=== PATIENT | male | born 1980 | race Caucasian/White ===

== ENCOUNTER 2020-08-22 15:41 | Inpatient (IN) | payer BC, OTHER ==
[2020-08-22] MEDS ORDERED: ACETAMINOPHEN TAB 325 MG TAB PO STA (16:11)
[2020-08-22] MEDS: SODIUM CHLORIDE 0.9% 1,000 ML IV SCH (16:19)
[2020-08-22] MEDS ORDERED: VANCOMYCIN IV PER PHARMACY 1 EACH MISC MISCELLANE PRN (16:40)
[2020-08-22 16:57] LABS: Basophils # (A) 0.1 k/uL (0-0.2); Basophils % (A) 0 %; Eosinophils # (A) 0.2 k/uL (0-0.7); Eosinophils % (A) 1 %; HCT 41.5 % (39.0-53.0); HGB 13.7 gm/dL (13.0-17.5); Lymphocytes # (A) 1.5 k/uL (1.0-4.8); Lymphocytes % (A) 7 %; MCH 28.5 pg (25.0-35.0); MCHC 32.9 g/dL (31.0-37.0); MCV 86.5 fL (80.0-100.0); Mean Platelet Volume 7.6; Monocytes # (A) 0.5 k/uL (0-1.0); Monocytes % (A) 3 %; Neutrophils # (A) 17.8 k/uL (1.3-7.7); Neutrophils % (A) 88 %; Platelet Count 405 k/uL (150-450); RDW 12.6 % (11.5-15.5); WBC 20.3 k/uL (3.8-10.6)
[2020-08-22] MEDS ORDERED: VANCOMYCIN 1,750 MG in SODIUM CHLORIDE 0.9% 500 ML 500 ML IVPB ONE (17:00)
[2020-08-22 17:12] LABS: ALT 15 U/L (4-49); AST 18 U/L (17-59); African American GFR (CKD) >90 (>60 ml/min/1.73 sqM); Albumin 4.2 g/dL (3.5-5.0); Alkaline Phosphatase 84 U/L (38-126); Anion Gap 7 mmol/L; Blood Urea Nitrogen 14 mg/dL (9-20); Calcium 9.5 mg/dL (8.4-10.2); Carbon Dioxide 29 mmol/L (22-30); Chloride 100 mmol/L (98-107); Glucose 119 mg/dL (74-99); Non-African American GFR(CKD) >90 (>60 ml/min/1.73 sqM); Potassium 4.5 mmol/L (3.5-5.1); Sodium 136 mmol/L (137-145); Total Bilirubin 0.6 mg/dL (0.2-1.3); Total Protein 7.4 g/dL (6.3-8.2)
[2020-08-22] MEDS ORDERED: AZITHROMYCIN 500 MG in SODIUM CHLORIDE 0.9% 250 ML IVPB STA (17:13)
[2020-08-22] MEDS ORDERED: NALOXONE 0.4 MG/ML 1 ML VIAL IV PRN (17:13)
--- NOTE | 2020-08-22 17:16 | ED ---
SOB HPI - General Chief Complaint: Shortness of Breath Stated Complaint: poss COVID, lung abscess Time Seen by Provider: 08/22/20 16:05 Source: patient, EMS Mode of arrival: EMS Limitations: no limitations - History of Present Illness Initial Comments: 39-year-old male presenting today for chief complaint of cough headache fever chills for the last 7 days patient states that about a week ago he was around a family member with similar symptoms. Patient states that he has been feeling generally unwell for the past week. He states he woke this morning feeling worse he states he felt like he had a fever as well as left-sided chest pain. He states it was a pressure more sharp and increases with respiration. Denies leg swelling he admits to night sweats. He states he felt like a rib was almost out. Patient denies recent travel trauma surgery recent immobilization or history of cancer. Patient denies hemoptysis. Patient denies syncope. Denies incarceration. Denies diarrhea or abdominal pain. Patient initiated evaluated at [facility] where he was treated with Unasyn and diagnosed with a suspected lung abscess after chest CT. White count was 19.5. Given Unasyn at outside facility. Blood culture taken before abx at outside facility. - Related Data Home Medications Medication Instructions Recorded Confirmed No Known Home Medications 08/22/20 08/22/20 Allergies Allergy/AdvReac Type Severity Reaction Status Date / Time cephalexin [From Keflex] Allergy Unknown Verified 08/22/20 17:27 Childhood Review of Systems ROS Statement: Those systems with pertinent positive or pertinent negative responses have been documented in the HPI. ROS Other: All systems not noted in ROS Statement are negative. Past Medical History Past Medical History: No Reported History History of Any Multi-Drug Resistant Organisms: None Reported Past Surgical History: Hernia Repair, Orthopedic Surgery, Tonsillectomy Past Psychological History: No Psychological Hx Reported Smoking Status: Never smoker Past Alcohol Use History: None Reported Past Drug Use History: None Reported General Exam - General Exam Comments Initial Comments: General: The patient is awake and alert, in no distress Eye: Pupils are equal, round and reactive to light, extra-ocular movements are intact. No nystagmus. There is normal conjunctiva bilaterally. No signs of icterus. Ears, nose, mouth and throat: There are moist mucous membranes and no oral lesions. Neck: The neck is supple, there is no tenderness or JVD. Cardiovascular: There is a regular rate and rhythm. No murmur, rub or gallop is appreciated. Respiratory: Respirations are non-labored, breath sounds are equal. No wheezes, stridor. Rhonchi and rales especially left sided. Gastrointestinal: Soft, non-distended, non-tender abdomen without masses or organomegaly noted. There is no rebound or guarding present. Musculoskeletal: Normal ROM, no tenderness. Strength 5/5. Sensation intact. Pulses equal bilaterally 2+. Neurological: A&O x 3. CN II-XII intact, There are no obvious motor or sensory deficits. Coordination appears grossly intact. Speech is normal. Skin: Skin is warm and dry and no rashes or lesions are noted. No LE edema or calf pain Psychiatric: Cooperative, appropriate mood & affect, normal judgment. Limitations: no limitations Course Vital Signs 08/22/20 08/22/20 15:43 16:46 Temperature 102.1 F H Pulse Rate 87 Respiratory 18 18 Rate Blood Pressure 138/90 O2 Sat by Pulse 94 L Oximetry Medical Decision Making - Medical Decision Making Significant leukocytosis. Patient initiated on vancomycin. Patient case discussed with Dr. Gentile who discussed case with accepting admitting provider. Pt appears in no distress on arrival and was givne tylenol. Re=testing covid as there was noted ground glass appearance near the abscess. - Lab Data Result diagrams: 08/22/20 16:38 08/22/20 16:38 Lab Results 08/22/20 08/22/20 08/22/20 Range/Units 16:38 16:38 16:38 WBC 20.3 H (3.8-10.6) k/uL RBC 4.80 (4.30-5.90) m/uL Hgb 13.7 (13.0-17.5) gm/dL Hct 41.5 (39.0-53.0) % MCV 86.5 (80.0-100.0) fL MCH 28.5 (25.0-35.0) pg MCHC 32.9 (31.0-37.0) g/dL RDW 12.6 (11.5-15.5) % Plt Count 405 (150-450) k/uL MPV 7.6 Neutrophils % 88 % Lymphocytes % 7 % Monocytes % 3 % Eosinophils % 1 % Basophils % 0 % Neutrophils # 17.8 H (1.3-7.7) k/uL Lymphocytes # 1.5 (1.0-4.8) k/uL Monocytes # 0.5 (0-1.0) k/uL Eosinophils # 0.2 (0-0.7) k/uL Basophils # 0.1 (0-0.2) k/uL Sodium 136 L (137-145) mmol/L Potassium 4.5 (3.5-5.1) mmol/L Chloride 100 (98-107) mmol/L Carbon Dioxide 29 (22-30) mmol/L Anion Gap 7 mmol/L BUN 14 (9-20) mg/dL Creatinine 0.92 (0.66-1.25) mg/dL Est GFR (CKD-EPI)AfAm >90 (>60 ml/min/1.73 sqM) Est GFR (CKD-EPI)NonAf >90 (>60 ml/min/1.73 sqM) Glucose 119 H (74-99) mg/dL Plasma Lactic Acid Carlos 1.3 (0.7-2.0) mmol/L Calcium 9.5 (8.4-10.2) mg/dL Total Bilirubin 0.6 (0.2-1.3) mg/dL AST 18 (17-59) U/L ALT 15 (4-49) U/L Alkaline Phosphatase 84 (38-126) U/L Total Protein 7.4 (6.3-8.2) g/dL Albumin 4.2 (3.5-5.0) g/dL Disposition Clinical Impression: Lung abscess, Fever, Cough, Chest discomfort Disposition: ADMITTED IP TO THIS [facility] Condition: Serious Is patient prescribed a controlled substance at d/c from ED?: No Time of Disposition: 17:15 Decision to Admit Reason: Admit from EC Decision Date: 08/22/20 Decision Time: 17:15
[2020-08-22] MEDS ORDERED: guaiFENesin SYRUP 100MG/5ML 200 MG/10 ML CUP PO PRN (21:08)
[2020-08-22] MEDS ORDERED: MENTHOL (NICE) LOZENGE MUCOUS MEM PRN (21:09)
--- NOTE | 2020-08-22 21:30 | P.CNPUL ---
History of Present Illness Consult date: 08/22/20 Reason for consult: pneumonia History of present illness: 39-year-old male patient presented to the emergency department today because of fever and chills of 7 day duration addition to cough and headache. His symptoms of been going on for almost a week and other family members in his household with having similar symptoms. The patient felt feverish and he also complained of some left-sided chest pain. The pain was sharp and was pleuritic in nature. No hemoptysis. He initially presented himself to [facility] he was treated with IV Unasyn he was diagnosed having pneumonia/lung abscess. His white cell count was at 19.5. He was started on IV Unasyn. Blood culture was taken and following that the patient was transferred to us for further evaluation and treatment. In the ED, the patient had temperature of 102.1. No tachycardia. No tachypnea. Pulse ox was 94%. He had a white cell count 20.3. Review of Systems Constitutional: Reports fatigue, Reports fever Eyes: denies as per HPI, denies blurred vision, denies bulging eye, denies decreased vision, denies diplopia, denies discharge, denies dry eye, denies irritation, denies itching, denies pain, denies photophobia, denies loss of peripheral vision, denies loss of vision, denies tunnel vision/blind spots Ears: deny: decreased hearing, ear discharge, earache, tinnitus Ears, nose, mouth and throat: Reports as per HPI Breasts: absent: as per HPI, gynecomastia Cardiovascular: Reports dyspnea on exertion Respiratory: Reports cough, Reports dyspnea, Reports pleurisy Gastrointestinal: Reports as per HPI Genitourinary: Reports as per HPI Musculoskeletal: Reports as per HPI Musculoskeletal: absent: ankle pain, ankle stiffness, ankle swelling Integumentary: Reports as per HPI Neurological: Reports as per HPI Psychiatric: Reports as per HPI Endocrine: Reports as per HPI Allergic/Immunologic: Reports as per HPI Past Medical History Past Medical History: No Reported History History of Any Multi-Drug Resistant Organisms: None Reported Past Surgical History: Hernia Repair, Orthopedic Surgery, Tonsillectomy Past Psychological History: No Psychological Hx Reported Smoking Status: Never smoker Past Alcohol Use History: None Reported Past Drug Use History: None Reported Medications and Allergies Home Medications Medication Instructions Recorded Confirmed Type No Known Home Medications 08/22/20 08/22/20 History Allergies Allergy/AdvReac Type Severity Reaction Status Date / Time cephalexin [From Keflex] Allergy Unknown Verified 08/22/20 17:27 Childhood Physical Exam Vitals: Vital Signs Temp Pulse Resp BP Pulse Ox 08/22/20 18:02 98.9 F 68 16 124/87 97 08/22/20 16:46 18 08/22/20 15:43 102.1 F H 87 18 138/90 94 L Intake and Output 08/22/20 08/22/20 08/22/20 06:59 14:59 22:59 Other: Weight 102.058 kg The patient appeared well nourished and normally developed. Vital signs as documented. Head exam is unremarkable. No scleral icterus or corneal arcus noted. Neck is without jugular venous distension, thyromegaly, or carotid bruits. Carotid upstrokes are brisk bilaterally. Lungs are clear to auscultation and percussion. Cardiac exam reveals the PMI to be normally sized and situated. Rhythm is regular. First and second heart sounds normal. No murmurs, rubs or gallops. Abdominal exam reveals normal bowel sounds, no masses, no organomegaly and no aortic enlargement. Extremities are nonedematous and both femoral and pedal pulses are normal.Examination of the skin revealed no evidence of significant rashes, suspicious appearing nevi or other concerning lesions.Neurologically, the patient is awake and alert and the patient does not have any focal neurological deficit. Cranial nerves are essentially intact. Results - Laboratory Findings CBC and BMP: 08/22/20 16:38 08/22/20 16:38 Abnormal lab findings: Abnormal Labs 08/22/20 08/22/20 16:38 16:38 WBC 20.3 H Neutrophils # 17.8 H Sodium 136 L Glucose 119 H Assessment and Plan Plan: 1 acute left lower lobe cavitating pneumonia, likely bacterial. Consider gram- negative pneumonia. Consider MRSA pneumonia. Unlikely to be a fungal infection. 2 leukocytosis secondary to above 3 Pleuritic left-sided chest wall pain secondary to above Plan Continue Unasyn and vancomycin Obtain sputum culture obtain blood cultures check fungal serology repeat chest x-ray within next 24-48 hours Bronchoscopy may be considered with a bronchial lavage if no improvement. Malignancy is doubtful.
[2020-08-22] MEDS ORDERED: BENZOCAINE/MENTHOL LOZENG 1 EACH LOZENGE MUCOUS MEM PRN (22:04)
[2020-08-22] MEDS: AMPICILLIN-SULBACTAM 3 GM in SODIUM CHLORIDE 0.9% 100 ML IVPB SCH (23:51)
[2020-08-23] MEDS: VANCOMYCIN 1,750 MG in SODIUM CHLORIDE 0.9% 500 ML 500 ML IVPB SCH ×3 (01:17→18:54)
[2020-08-23] MEDS: SODIUM CHLORIDE 0.9% 1,000 ML IV SCH ×3 (04:40→17:43)
[2020-08-23] MEDS: AMPICILLIN-SULBACTAM 3 GM in SODIUM CHLORIDE 0.9% 100 ML IVPB SCH ×3 (08:27→22:29)
[2020-08-23 11:33] LABS: Basophils # (A) 0.1 k/uL (0-0.2); Basophils % (A) 1 %; Eosinophils # (A) 0.2 k/uL (0-0.7); Eosinophils % (A) 2 %; HCT 41.1 % (39.0-53.0); Lymphocytes # (A) 1.5 k/uL (1.0-4.8); Lymphocytes % (A) 10 %; MCHC 31.6 g/dL (31.0-37.0); MCV 88.3 fL (80.0-100.0); Mean Platelet Volume 8.2; Monocytes # (A) 0.5 k/uL (0-1.0); Monocytes % (A) 3 %; Neutrophils # (A) 12.8 k/uL (1.3-7.7); Neutrophils % (A) 84 %; Platelet Count 440 k/uL (150-450); RBC 4.65 m/uL (4.30-5.90); RDW 12.6 % (11.5-15.5); WBC 15.2 k/uL (3.8-10.6)
[2020-08-23 11:37] LABS: ALT 14 U/L (4-49); AST 17 U/L (17-59); African American GFR (CKD) >90 (>60 ml/min/1.73 sqM); Albumin 3.6 g/dL (3.5-5.0); Alkaline Phosphatase 82 U/L (38-126); Anion Gap 8 mmol/L; Blood Urea Nitrogen 12 mg/dL (9-20); Carbon Dioxide 26 mmol/L (22-30); Chloride 103 mmol/L (98-107); Glucose 124 mg/dL (74-99); Non-African American GFR(CKD) >90 (>60 ml/min/1.73 sqM); Potassium 4.4 mmol/L (3.5-5.1); Sodium 137 mmol/L (137-145); Total Bilirubin 0.6 mg/dL (0.2-1.3); Total Protein 6.6 g/dL (6.3-8.2)
--- NOTE | 2020-08-23 12:05 | XR ---
EXAMINATION TYPE: XR chest 2V DATE OF EXAM: 08/23/2020 COMPARISON: 08/22/2020 TECHNIQUE: Frontal view is submitted. HISTORY: Cough FINDINGS: The left lower lobe area of consolidation. Right lung demonstrates no definite consolidation and ther e is no pneumothorax or overt failure. Heart size normal. Retrocardiac nodular density measuring 1 cm on the right. Degenerative change of the spine and underlying COPD suspected. IMPRESSION: 1. Left lower lobe infiltrate correlate for pneumonia small effusion. Recent outside CT scan demonstr ates pulmonary abscess in the region of the infiltrate.
--- NOTE | 2020-08-23 15:01 | P.PN ---
Subjective Progress Note Date: 08/23/20 Principal diagnosis: Cavitary lesion in his lung 39-year-old male patient presented to the emergency department today because of fever and chills of 7 day duration addition to cough and headache. His symptoms of been going on for almost a week and other family members in his household with having similar symptoms. The patient felt feverish and he also complained of some left-sided chest pain. The pain was sharp and was pleuritic in nature. No hemoptysis. He initially presented himself to [facility] he was treated with IV Unasyn he was diagnosed having pneumonia/lung abscess. His white cell count was at 19.5. He was started on IV Unasyn. Blood culture was t aken and following that the patient was transferred to us for further evaluation and treatment. In the ED, the patient had temperature of 102.1. No tachycardia. No tachypnea. Pulse ox was 94%. He had a white cell count 20.3. The patient is seen today 08/23/2020 in follow-up on the selective care unit. He is currently sitting up in bed. Awake and alert in no acute distress. He does have a productive cough. Sputum culture pending. No fever, chills or night sweats. Less left-sided chest discomfort. He continues to maintain good O2 saturations in the 90s on room air. He's afebrile. White count 15.2. Hemoglobin 13.0. Sodium 137. Potassium 4.4. Creatinine 0.68. Mar virus not detected. Continued on Unasyn and vancomycin. 0.9 normal saline at 130 ML's per hour Objective - Vital Signs Vital signs: Vital Signs Temp 98.0 F 08/23/20 08:49 Pulse 72 08/23/20 08:49 Resp 18 08/23/20 08:49 BP 121/81 08/23/20 08:49 Pulse Ox 95 08/23/20 08:49 Intake & Output 08/22/20 08/23/20 08/23/20 18:59 06:59 18:59 Intake Total 240 Balance 240 Weight 102.058 kg 104.2 kg Intake: Oral 240 Other: Voiding Method Toilet # Voids 0 1 - Exam Very pleasant 39-year-old gentleman, on room air, appeared well nourished and normally developed. Vital signs as documented. Head exam is unremarkable. No scleral icterus or corneal arcus noted. Neck is without jugular venous distension, thyromegaly, or carotid bruits. Carotid upstrokes are brisk bilaterally. Lungs scattered rhonchi on the left. Cardiac exam reveals the PMI to be normally sized and situated. Rhythm is regular. First and second heart sounds normal. No murmurs, rubs or gallops. Abdominal exam reveals normal bowel sounds, no masses, no organomegaly and no aortic enlargement. Extremities are nonedematous and both femoral and pedal pulses are normal.Examination of the skin revealed no evidence of significant rashes, suspicious appearing nevi or other concerning lesions.Neurologically, the patient is awake and alert and the patient does not have any focal neurological deficit. Cranial nerves are essentially intact. - Labs CBC & Chem 7: 08/23/20 07:16 08/23/20 07:16 Labs: Abnormal Lab Results - Last 24 Hours (Table) 08/22/20 08/22/20 08/23/20 Range/Units 16:38 16:38 07:16 WBC 20.3 H 15.2 H (3.8-10.6) k/uL Neutrophils # 17.8 H 12.8 H (1.3-7.7) k/uL Sodium 136 L (137-145) mmol/L Glucose 119 H (74-99) mg/dL 08/23/20 Range/Units 07:16 WBC (3.8-10.6) k/uL Neutrophils # (1.3-7.7) k/uL Sodium (137-145) mmol/L Glucose 124 H (74-99) mg/dL Assessment and Plan Assessment: 1 acute left lower lobe cavitating pneumonia, likely bacterial. Consider gram- negative pneumonia. Consider MRSA pneumonia. Unlikely to be a fungal infection. 2 leukocytosis secondary to above 3 Pleuritic left-sided chest wall pain secondary to above Plan The patient was seen and evaluated by Dr. Altamirano Continue with the Unasyn and vancomycin Cultures and serology pending Repeat chest x-ray in a.m. May consider bronchoscopy with BAL if no improvement We will continue to follow I, the cosigning physician, performed a history & physical examination of the patient. Lungs sounds scattered rhonchi in the left Maintaining good O2 saturations in the 90s on room air. I discussed the assessment and plan of care with my nurse practitioner, Florence Cabrera. I attest to the above note as dictated by her.
[2020-08-23] MEDS ORDERED: ACETAMINOPHEN TAB 325 MG TAB PO PRN (15:47)
--- NOTE | 2020-08-23 15:48 | P.HPIM ---
History of Present Illness H&P Date: 08/23/20 Chief Complaint: Shortness of breath and cough Patient was admitted to the hospital yesterday that I was not notified by ER staff. I realized he was admitted to me today. No one notified me of the admission. This is a 39-year-old male with no significant past medical history who presented to an outside emergency room with worsening shortness of breath and cough that started 5 days ago prior to his presentation. Patient said that he was having fevers and left-sided chest pain. Cough is generally nonproductive but occasionally productive of dark sputum. Patient denies any hemoptysis. No recent sick contact. No known history of tuberculosis at moderate risk factors for tuberculosis. Patient told me that he worked as a [employer]. He was evaluated in the ER and was started on IV Unasyn. He is currently admitted to the hospital for further management of his medical problems noted below. Patient reports feeling slightly better today. He does not have any complaints this morning. Review of Systems Review of system: 14 points review of systems were obtained and were negative except to what were mentioned in the HPI. Past Medical History Past Medical History: No Reported History History of Any Multi-Drug Resistant Organisms: None Reported Past Surgical History: Hernia Repair, Orthopedic Surgery, Tonsillectomy Past Anesthesia/Blood Transfusion Reactions: No Reported Reaction Past Psychological History: No Psychological Hx Reported Smoking Status: Never smoker Past Alcohol Use History: None Reported Past Drug Use History: None Reported Medications and Allergies Home Medications Medication Instructions Recorded Confirmed Type No Known Home Medications 08/22/20 08/22/20 History Allergies Allergy/AdvReac Type Severity Reaction Status Date / Time cephalexin [From Keflex] Allergy Unknown Verified 08/22/20 17:27 Childhood Physical Exam Vitals: Vital Signs Temp Pulse Pulse Resp BP BP Pulse Ox 08/23/20 08:49 98.0 F 72 16 121/81 95 08/23/20 04:00 99.0 F 64 17 118/73 97 08/23/20 00:00 98.2 F 72 16 116/72 95 08/22/20 20:17 98.8 F 75 18 122/60 97 08/22/20 20:00 98.3 F 75 16 116/73 95 08/22/20 18:02 98.9 F 68 16 124/87 97 08/22/20 16:46 18 Intake and Output 08/23/20 08/23/20 08/23/20 06:59 14:59 22:59 Intake Total 240 Balance 240 Intake: Oral 240 Other: Voiding Method Toilet # Voids 0 1 Weight 104.2 kg General: The patient is awake and alert, in no distress Eye: there is normal conjunctiva bilaterally. Neck: The neck is supple, there is no JVD. Cardiovascular: Normal S1-S2, no S3-S4, no murmurs. Respiratory: Lungs clear to auscultation bilaterally Gastrointestinal: Abdomen is soft, nontender Musculoskeletal: There is no pedal edema. Neurological:. Speech is normal. Skin: Skin is warm and dry Results CBC & Chem 7: 08/23/20 07:16 08/23/20 07:16 Labs: Abnormal Lab Results - Last 24 Hours (Table) 08/22/20 08/22/20 08/23/20 Range/Units 16:38 16:38 07:16 WBC 20.3 H 15.2 H (3.8-10.6) k/uL Neutrophils # 17.8 H 12.8 H (1.3-7.7) k/uL Sodium 136 L (137-145) mmol/L Glucose 119 H (74-99) mg/dL 08/23/20 Range/Units 07:16 WBC (3.8-10.6) k/uL Neutrophils # (1.3-7.7) k/uL Sodium (137-145) mmol/L Glucose 124 H (74-99) mg/dL Thrombosis Risk Factor Assmnt - Choose All That Apply Any of the Below Risk Factors Present?: No Other Risk Factors: No Thrombosis Risk Factor Assessment Level: Very Low Risk Assessment and Plan Assessment: This is a 39-year-old male who presented to the emergency room with worsening shortness of breath and cough. Patient was evaluated in ER currently admitted to the hospital for further management of his medical problems noted below 1. Left lower lobe cavitating pneumonia, started on broad spectrum antibiotic with IV Unasyn and vancomycin. Pulmonary and ID services consulted, appreciate recommendations. May consider bronchoscopy with BAL. Awaiting sputum culture. Covid19 PCR negative. No suspicion for tuberculosis. 2. Sepsis without septic shock, improved with aggressive IV fluid hydration and antibiotic. Awaiting blood culture.
[2020-08-23] MEDS ORDERED: SODIUM CHLORIDE 0.9% 1,000 ML IV SCH (16:00)
[2020-08-23] MEDS: HEPARIN SODIUM,PORCINE 5,000 UNIT/ML 1 ML VIAL SQ SCH (20:36)
--- NOTE | 2020-08-23 22:37 | P.CONS ---
History of Present Illness - Reason for Consult Consult date: 08/23/20 Pneumonia Requesting physician: Mya Perez - Chief Complaint Shortness of breath and left-sided chest pain x 1 week - History of Present Illness Patient is a 39-year-old male presenting to the ER at [facility] yesterday for evaluation of cough headache and fever that has been going on for about a week before he presented to hospital apparently the patient has been exposed to family member with similar symptoms patient has been complaining of increasing shortness of breath he also have a cough which is moderate intensity and also has been complaining of pain to the left lower chest area more of a sharp in nature and worse with taking a deep breath on coughing patient was evaluated at [facility] with the patient did have a CT of the chest with concern for lung abscess patient received a dose of Unasyn at that facility and the patient was transferred to [facility] for further management on arrival to this facility but did have a fever of 102 F patient did have white count of 20,000 repeat is 15.2 eugene PCR was negative liver enzymes were normal patient did have blood cultures are currently pending he did have a chest x-ray left lower lobe infiltrate correlate for pneumonia and small effusion patient has been treated with vancomycin and Unasyn infectious disease was consulted for further management of antibiotic therapy Review of Systems Positive point has been mentioned in the HPI rest of the systems are negative Past Medical History Past Medical History: No Reported History History of Any Multi-Drug Resistant Organisms: None Reported Past Surgical History: Hernia Repair, Orthopedic Surgery, Tonsillectomy Past Anesthesia/Blood Transfusion Reactions: No Reported Reaction Past Psychological History: No Psychological Hx Reported Smoking Status: Never smoker Past Alcohol Use History: None Reported Past Drug Use History: None Reported Medications and Allergies Home Medications Medication Instructions Recorded Confirmed Type No Known Home Medications 08/22/20 08/22/20 History Allergies Allergy/AdvReac Type Severity Reaction Status Date / Time cephalexin [From Keflex] Allergy Unknown Verified 08/22/20 17:27 Childhood Physical Exam Vitals: Vital Signs Temp Pulse Resp BP Pulse Ox 08/23/20 16:15 98.5 F 82 18 126/78 95 08/23/20 16:00 82 18 08/23/20 12:00 98.9 F 82 16 126/79 95 08/23/20 08:49 98.0 F 72 16 121/81 95 08/23/20 04:00 99.0 F 64 17 118/73 97 08/23/20 00:00 98.2 F 72 16 116/72 95 Intake and Output 08/23/20 08/23/20 08/23/20 06:59 14:59 22:59 Intake Total 240 240 Balance 240 240 Intake: Oral 240 240 Other: Voiding Method Toilet Toilet Toilet # Voids 0 1 1 Weight 104.2 kg GENERAL DESCRIPTION: Middle-aged male lying in bed, no distress. No tachypnea or accessory muscle of respiration use. HEENT: Shows Pallor , no scleral icterus. Oral mucous membrane is dry. No pharyngeal erythema or thrush NECK: Trachea central, no thyromegaly. LUNGS: Unlabored breathing. Decreased breath sound at the base. No wheeze or crackle. HEART: S1, S2, regular rate and rhythm. No loud murmur ABDOMEN: Soft, no tenderness , guarding or rigidity, no organomegaly EXTREMITIES: No edema of feet. SKIN: No rash, no masses palpable. NEUROLOGICAL: The patient is awake, alert, oriented x3, mood and affect normal. Results CBC & Chem 7: 08/23/20 07:16 08/23/20 07:16 Labs: Abnormal Lab Results - Last 24 Hours (Table) 08/23/20 08/23/20 Range/Units 07:16 07:16 WBC 15.2 H (3.8-10.6) k/uL Neutrophils # 12.8 H (1.3-7.7) k/uL Glucose 124 H (74-99) mg/dL Microbiology - Last 24 Hours (Table) 08/22/20 16:38 Blood Culture - Preliminary Blood No Growth after 24 hours 08/23/20 11:15 Sputum Culture - Preliminary Sputum Assessment and Plan Assessment: 1- patient presented to hospital with fever and shortness of breath and left- sided chest pain in this patient who did have evidence of left lower lobe pneumonia with consult for possible cavitating pneumonia versus an abscess more likely Require pathogen most likely aspiration or a gram-negative bacteria 2-cephalexin ALLERGY (1) Pneumonia Current Visit: Yes Status: Acute Code(s): J18.9 - PNEUMONIA, UNSPECIFIED ORGANISM SNOMED Code(s): 642737753 (2) Lung abscess Current Visit: Yes Status: Acute Code(s): J85.2 - ABSCESS OF LUNG WITHOUT PNEUMONIA SNOMED Code(s): 92320355 Plan: 1-Vancomycin pharmacy to dose target trough of 15 while watching kidney function and Vanco trough closely 2-Unasyn 3 g every 6 hours 3-we will wait for his blood and sputum cultures to be finalized to determine his discharge antibiotics he will likely need a PICC line for outpatient IV antibiotics We will follow on clinical condition and cultures to further adjust medication if needed Thank you for this consultation will follow this patient with you Time with Patient: Greater than 30
[2020-08-24] MEDS ORDERED: VANCOMYCIN TROUGH DUE 1 EACH MISC MISCELLANE ONE
[2020-08-24] MEDS: VANCOMYCIN 1,750 MG in SODIUM CHLORIDE 0.9% 500 ML 500 ML IVPB SCH ×3 (00:32→18:10)
[2020-08-24] MEDS: AMPICILLIN-SULBACTAM 3 GM in SODIUM CHLORIDE 0.9% 100 ML IVPB SCH ×3 (09:01→22:44)
[2020-08-24] MEDS: HEPARIN SODIUM,PORCINE 5,000 UNIT/ML 1 ML VIAL SQ SCH ×2 (09:01→19:40)
[2020-08-24 10:15] LABS: Basophils % (A) 1 %; Eosinophils # (A) 0.2 k/uL (0-0.7); Eosinophils % (A) 2 %; HCT 38.5 % (39.0-53.0); HGB 12.7 gm/dL (13.0-17.5); Lymphocytes # (A) 1.6 k/uL (1.0-4.8); Lymphocytes % (A) 18 %; Mean Platelet Volume 7.2; Monocytes # (A) 0.4 k/uL (0-1.0); Monocytes % (A) 4 %; Neutrophils # (A) 6.8 k/uL (1.3-7.7); Neutrophils % (A) 74 %; Platelet Count 384 k/uL (150-450); RBC 4.37 m/uL (4.30-5.90); RDW 12.4 % (11.5-15.5); WBC 9.2 k/uL (3.8-10.6)
[2020-08-24 10:41] LABS: African American GFR (CKD) >90 (>60 ml/min/1.73 sqM); Anion Gap 6 mmol/L; Blood Urea Nitrogen 10 mg/dL (9-20); Calcium 9.2 mg/dL (8.4-10.2); Carbon Dioxide 28 mmol/L (22-30); Chloride 105 mmol/L (98-107); Glucose 96 mg/dL (74-99); Non-African American GFR(CKD) >90 (>60 ml/min/1.73 sqM); Potassium 4.5 mmol/L (3.5-5.1); Sodium 139 mmol/L (137-145)
[2020-08-24 14:55] LABS: C-ANCA <1:20 Titer (<1:20)
--- NOTE | 2020-08-24 16:40 | P.PN ---
Subjective Progress Note Date: 08/24/20 Patient is doing fairly well today. He denies any shortness of breath or cough. Objective - Vital Signs Vital signs: Vital Signs Temp 99.6 F 08/24/20 12:00 Pulse 85 08/24/20 12:00 Resp 18 08/24/20 04:00 BP 120/79 08/24/20 12:00 Pulse Ox 96 08/24/20 12:00 Intake & Output 08/23/20 08/24/20 08/24/20 18:59 06:59 18:59 Intake Total 480 1440 476 Balance 480 1440 476 Weight 103.8 kg Intake: Intake, IV Titration 1200 Amount Ampicillin-Sulbactam 3 gm 100 In Sodium Chloride 0.9% 100 ml @ 200 mls/hr IVPB Q8HR [facility] Rx#:[id number] Sodium Chloride 0.9% 1, 600 000 ml @ 50 mls/hr IV . Q20H [facility] Rx#:[id number] Vancomycin 1,750 mg In 500 Sodium Chloride 0.9% 500 ml 500 ml @ 167 mls/hr IVPB Q8H [facility] Rx#: [id number] Oral 480 240 476 Other: Voiding Method Toilet Toilet # Voids 1 4 1 - Exam General: The patient is awake and alert, in no distress Eye: there is normal conjunctiva bilaterally. Neck: The neck is supple, there is no JVD. Cardiovascular: Normal S1-S2, no S3-S4, no murmurs. Respiratory: Lungs clear to auscultation bilaterally Gastrointestinal: Abdomen is soft, nontender Musculoskeletal: There is no pedal edema. Neurological:. Speech is normal. Skin: Skin is warm and dry - Labs CBC & Chem 7: 08/24/20 09:07 08/24/20 09:07 Labs: Abnormal Lab Results - Last 24 Hours (Table) 08/24/20 Range/Units 09:07 Hgb 12.7 L (13.0-17.5) gm/dL Hct 38.5 L (39.0-53.0) % Microbiology - Last 24 Hours (Table) 08/23/20 11:15 Gram Stain - Preliminary Sputum Sputum Culture - Preliminary 08/22/20 16:38 Blood Culture - Preliminary Blood No Growth after 24 hours Assessment and Plan Assessment: This is a 39-year-old male who presented to the emergency room with worsening shortness of breath and cough. Patient was evaluated in ER currently admitted to the hospital for further management of his medical problems noted below 1. Left lower lobe cavitating pneumonia with questionable abscess formation, started on broad spectrum antibiotic with IV Unasyn and vancomycin. Pulmonary and ID services consulted, appreciate recommendations. May consider bronchoscopy with BAL. Awaiting sputum culture. Most likely will require a PIC C line and IV antibiotic at home per Infectious disease. Covid19 PCR negative. No suspicion for tuberculosis. 2. Sepsis without septic shock, improved with aggressive IV fluid hydration and antibiotic. Blood culture negative to date 3. DVT prophylaxis with subcu heparin Awaiting sputum cultures to finalize for further guidance of discharge antibiotic
--- NOTE | 2020-08-24 17:27 | P.PN ---
Subjective Progress Note Date: 08/24/20 Principal diagnosis: Cavitary lesion in the lung 39-year-old male patient presented to the emergency department today because of fever and chills of 7 day duration addition to cough and headache. His symptoms of been going on for almost a week and other family members in his household with having similar symptoms. The patient felt feverish and he also complained of some left-sided chest pain. The pain was sharp and was pleuritic in nature. No hemoptysis. He initially presented himself to [facility] he was treated with IV Unasyn he was diagnosed having pneumonia/lung abscess. His white cell count was at 19.5. He was started on IV Unasyn. Blood culture was taken and following that the patient was transferred to us for further evaluation and treatment. In the ED, the patient had temperature of 102.1. No tachycardia. No tachypnea. Pulse ox was 94%. He had a white cell count 20.3. The patient is seen today 08/23/2020 in follow-up on the selective care unit. He is currently sitting up in bed. Awake and alert in no acute distress. He does have a productive cough. Sputum culture pending. No fever, chills or night sweats. Less left-sided chest discomfort. He continues to maintain good O2 saturations in the 90s on room air. He's afebrile. White count 15.2. Hemoglobin 13.0. Sodium 137. Potassium 4.4. Creatinine 0.68. Mar virus not detected. Continued on Unasyn and vancomycin. 0.9 normal saline at 130 ML's per hour On 08/24/2020 patient seen in follow-up on elective care unit, and he is feeling better, is on room air, pulse ox 96%, he's been having some low-grade fevers, with a T-max 99.6F, lung sounds are diminished at the bases, no rhonchi or wheezing, and ice any chest discomfort, at times he is able to clear some weir colored phlegm. Blood and sputum cultures have shown no growth thus far, final cultures are pending, a current antibiotic coverage includes Unasyn and vancomycin. Labs have been reviewed, showing limits cell count significant improved since admission, and down to 9.2, hemoglobin is 12.7, the rest of the CBC was unremarkable, renal profile and electrolytes were unremarkable. Chest pain or hemoptysis, is at p-ANCA and c-ANCA came back negative, COVID 19 PCR was negative Objective - Vital Signs Vital signs: Vital Signs Temp 99.6 F 08/24/20 12:00 Pulse 85 08/24/20 12:00 Resp 18 08/24/20 04:00 BP 120/79 08/24/20 12:00 Pulse Ox 96 08/24/20 12:00 Intake & Output 08/23/20 08/24/20 08/24/20 18:59 06:59 18:59 Intake Total 480 1440 476 Balance 480 1440 476 Weight 103.8 kg Intake: Intake, IV Titration 1200 Amount Ampicillin-Sulbactam 3 gm 100 In Sodium Chloride 0.9% 100 ml @ 200 mls/hr IVPB Q8HR [facility] Rx#:[id number] Sodium Chloride 0.9% 1, 600 000 ml @ 50 mls/hr IV . Q20H [facility] Rx#:[id number] Vancomycin 1,750 mg In 500 Sodium Chloride 0.9% 500 ml 500 ml @ 167 mls/hr IVPB Q8H [facility] Rx#: [id number] Oral 480 240 476 Other: Voiding Method Toilet Toilet # Voids 1 4 1 - Exam GENERAL EXAM: Alert, very pleasant, comfortable in no apparent distress. HEAD: Normocephalic/atraumatic. EYES: Normal reaction of pupils, equal size. Conjunctiva pink, sclera white. NOSE: Clear with pink turbinates. THROAT: No erythema or exudates. NECK: No masses, no JVD, no thyroid enlargement, no adenopathy. CHEST: No chest wall deformity. Symmetrical expansion. LUNGS: Equal air entry with no crackles, wheeze, rhonchi or dullness. CVS: Regular rate and rhythm, normal S1 and S2, no gallops, no murmurs, no rubs ABDOMEN: Soft, nontender. No hepatosplenomegaly, normal bowel sounds, no guarding or rigidity. EXTREMITIES: No clubbing, no edema, no cyanosis, 2+ pulses and upper and lower extremities. MUSCULOSKELETAL: Muscle strength and tone normal. SPINE: No scoliosis or deformity SKIN: No rashes CENTRAL NERVOUS SYSTEM: Alert and oriented -3. No focal deficits, tone is normal in all 4 extremities. PSYCHIATRIC: Alert and oriented -3. Appropriate affect. Intact judgment and insight. - Labs CBC & Chem 7: 08/24/20 09:07 08/24/20 09:07 Labs: Abnormal Lab Results - Last 24 Hours (Table) 08/24/20 Range/Units 09:07 Hgb 12.7 L (13.0-17.5) gm/dL Hct 38.5 L (39.0-53.0) % Microbiology - Last 24 Hours (Table) 08/23/20 11:15 Gram Stain - Preliminary Sputum Sputum Culture - Preliminary 08/22/20 16:38 Blood Culture - Preliminary Blood No Growth after 24 hours Assessment and Plan Plan: Assessment: #1. Acute left lower lung cavitating pneumonia, most likely bacterial, consider gram-negative pneumonia, and consider MRSA pneumonia. Unlikely fungal infection, sputum and blood cultures have shown no growth thus far, final cultures are pending the patient is covered with a combination of Unasyn and vancomycin. COVID 19 PCR was negative #2. Leukocytosis related to the above, improving #3. Pleuritic left-sided chest pain related to bacterial pneumonia involving the left lung, improved Plan We'll continue with the same antibiotics, awaiting final results of the blood and sputum cultures, clinically patient is improving, no worsening dyspnea, stable oxygenation, white blood count is improving, we'll obtain follow-up chest x-ray in the morning. Ruled out for COVID 19, connective tissue workup including p-ANCA and c-Anca and creatinine were negative I performed a history & physical examination of the patient and discussed their management with my nurse practitioner, Rita Hein. I reviewed the nurse practitioner's note and agree with the documented findings and plan of care. Lung sounds are positive for . The findings and the impression was discussed with the patient. I attest to the documentation by the nurse practitioner. Time with Patient: Less than 30
--- NOTE | 2020-08-24 23:59 | PN ---
PROGRESS NOTE DATE OF SERVICE: 08/24/2020 REASON FOR FOLLOWUP: Pneumonia and possible lung abscess. INTERVAL HISTORY: The patient is currently afebrile. The patient's left-sided chest pain has decreased in intensity. Cough has decreased in intensity. No nausea, no vomiting. No abdominal pain, no diarrhea. PHYSICAL EXAMINATION: Blood pressure 121/79 with a pulse of 76, temperature 98.8. He is 96% on room air. General description is a middle-aged male lying in bed in no distress. RESPIRATORY SYSTEM: Unlabored breathing, decreased breath sounds in the bases. No wheeze. HEART: S1, S2. Regular rate and rhythm. ABDOMEN: Soft. No tenderness. LABS: Hemoglobin is 12.7, white count 9.2, BUN of 10, creatinine 0.80. Sputum pending. Blood culture so far negative. DIAGNOSTIC IMPRESSION AND PLAN: Patient with left-sided pneumonia and a concern for lung abscess in this patient clinically responding. His white count has normalized. Patient is covered with Unasyn and vancomycin to continue. Will await for the culture to finalize and continue supportive care. MMODL / IJN: [id number] /
[2020-08-25] MEDS: VANCOMYCIN 1,750 MG in SODIUM CHLORIDE 0.9% 500 ML 500 ML IVPB SCH ×2 (00:36→09:14)
[2020-08-25] MEDS: AMPICILLIN-SULBACTAM 3 GM in SODIUM CHLORIDE 0.9% 100 ML IVPB SCH (09:14)
[2020-08-25] MEDS: HEPARIN SODIUM,PORCINE 5,000 UNIT/ML 1 ML VIAL SQ SCH ×3 (09:15→22:36)
--- NOTE | 2020-08-25 10:13 | XR ---
EXAMINATION TYPE: XR chest 1V portable DATE OF EXAM: 08/25/2020 CLINICAL HISTORY: Left lower lobe pneumonia. TECHNIQUE: Portable frontal view of the chest. COMPARISON: 08/23/2020 chest radiograph FINDINGS: The cardiomediastinal silhouette is within normal limits for size. Left lower lobe focal a irspace opacity redemonstrated. There is haziness of the left costophrenic angle likely small left pl eural effusion. No pneumothorax seen. IMPRESSION: Redemonstrated left basilar focal airspace opacity and likely small left pleural effusio n.
[2020-08-25 10:52] LABS: Basophils # (A) 0.1 k/uL (0-0.2); Basophils % (A) 1 %; Eosinophils # (A) 0.3 k/uL (0-0.7); Eosinophils % (A) 3 %; HCT 40.2 % (39.0-53.0); HGB 12.9 gm/dL (13.0-17.5); Lymphocytes # (A) 2.1 k/uL (1.0-4.8); Lymphocytes % (A) 21 %; MCH 28.1 pg (25.0-35.0); MCV 87.6 fL (80.0-100.0); Monocytes # (A) 0.3 k/uL (0-1.0); Monocytes % (A) 3 %; Neutrophils # (A) 7.2 k/uL (1.3-7.7); Neutrophils % (A) 72 %; Platelet Count 458 k/uL (150-450); RBC 4.59 m/uL (4.30-5.90); RDW 12.7 % (11.5-15.5)
[2020-08-25 11:04] LABS: African American GFR (CKD) >90 (>60 ml/min/1.73 sqM); Anion Gap 8 mmol/L; Blood Urea Nitrogen 12 mg/dL (9-20); Calcium 9.3 mg/dL (8.4-10.2); Carbon Dioxide 28 mmol/L (22-30); Chloride 103 mmol/L (98-107); Glucose 108 mg/dL (74-99); Non-African American GFR(CKD) >90 (>60 ml/min/1.73 sqM); Potassium 4.5 mmol/L (3.5-5.1); Sodium 139 mmol/L (137-145)
--- NOTE | 2020-08-25 14:12 | PN ---
PROGRESS NOTE DATE OF SERVICE: 08/25/2020 REASON FOR FOLLOWUP: Left lung pneumonia and questionable lung abscess. INTERVAL HISTORY: The patient is currently afebrile. The patient's last night chest pain has decreased in intensity. He has been able to take a deep breath, cough with decreased intensity. No nausea, no vomiting, no abdominal pain, no diarrhea. PHYSICAL EXAMINATION: Blood pressure 116/72 with a pulse of 98.4, temperature is 98.5. General description is a middle-aged male up in the bed, in no distress. RESPIRATORY SYSTEM: Unlabored breathing, decreased breath sounds at the base, no wheeze. HEART: S1, S2. Regular rate and rhythm. ABDOMEN: Soft. No tenderness. LABS: Hemoglobin is 12, white count is 10, is 40.. DIAGNOSTIC IMPRESSION/PLAN: Patient with left lower lobe pneumonia, concern for possible abscess. Overall improvement on vancomycin and cefepime. Patient has been negative pathogen. Antibiotic will be switched over to Rocephin 2 g daily and close outpatient followup. Questions and concerns were answered. MMODL / IJN: [id number] /
[2020-08-25] MEDS ORDERED: LIDOCAINE 1% INJ 10MG/ML (20 ML MDV) SQ ONE (14:51)
--- NOTE | 2020-08-25 15:38 | IR ---
EXAMINATION TYPE: IR cvc insert >=5 years DATE OF EXAM: 08/25/2020 COMPARISON: Chest radiograph 08/25/2020 CLINICAL HISTORY: Infection, need for long-term IV antibiotics CONNIE SCRATCHER: Dr. Jazmin Leyva PROCEDURE: The procedure was discussed with the patient. The risks, complications, benefits, and alternatives we re discussed and any questions were answered. Informed consent was obtained. The patient was placed supine. Maximal barrier technique utilized. After informed consent, the skin o verlying the left brachial vein was localized with ultrasound and noted to be compressible and patent . An ultrasound image was obtained and submitted on the patient's chart. Sterile technique utilized with the ultrasound machine. The skin overlying was prepped and draped and Lidocaine used for local a nesthesia. Access was gained to the vein under ultrasound guidance with a 21 gauge needle and a 0.018 inch wire was advanced. A skin angela was made with a scalpel. Access site was dilated with Peel-Away sheath. 4 FR single lumen catheter tailored to the appropriate length of 47 cm and advanced such that the distal tip is at the cavoatrial junction. Spot image was obtained verifying PICC placement. Cath eter was fixed to the skin and a sterile dressing was placed following hemostasis. Catheter was aspir ated and flushed with saline. Patient was discharged from the radiology department in stable conditio n without immediate complication. Fluoro time: 0.2 minutes Fluoroscopic images obtained: 7 IMPRESSION: Status post ultrasound-guided and fluoroscopic-guided PICC placement, ready for use.
[2020-08-25] MEDS ORDERED: ERTAPENEM 1 GM in SODIUM CHLORIDE 0.9% 50 ML IVPB SCH (15:45)
--- NOTE | 2020-08-25 16:11 | P.PN ---
Subjective Progress Note Date: 08/25/20 The patient is a 39-year-old male with no significant past medical history was admitted on 08/23) we were not notified). Seen by our service on 08/24. The patient initially presented for his cough diagnosed with pneumonia and started on IV Unasyn by ER physician. The patient has medication adjusted and vancomycin was added to his regimen per ID. He was seen by me this morning and feels less painful and short of breath. Objective - Vital Signs Vital signs: Vital Signs Temp 98.4 F 08/25/20 08:00 Pulse 75 08/25/20 12:00 Resp 16 08/25/20 04:00 BP 116/73 08/25/20 12:00 Pulse Ox 96 08/25/20 12:00 Intake & Output 08/24/20 08/25/20 08/25/20 18:59 06:59 18:59 Intake Total 920 1230 458 Output Total 300 Balance 920 1230 158 Weight 97.7 kg Intake: Intake, IV Titration 750 Amount Ampicillin-Sulbactam 3 gm 100 In Sodium Chloride 0.9% 100 ml @ 200 mls/hr IVPB Q8HR [facility] Rx#:[id number] Sodium Chloride 0.9% 1, 150 000 ml @ 50 mls/hr IV . Q20H [facility] Rx#:[id number] Vancomycin 1,750 mg In 500 Sodium Chloride 0.9% 500 ml 500 ml @ 167 mls/hr IVPB Q8H [facility] Rx#: [id number] Oral 920 480 458 Output: Urine 300 Other: Voiding Method Toilet # Voids 1 1 - Constitutional General appearance: Present: no acute distress - Respiratory Respiratory: bilateral: diminished - Cardiovascular Rhythm: regular - Gastrointestinal General gastrointestinal: Present: normal bowel sounds - Psychiatric Psychiatric: Present: appropriate affect - Labs CBC & Chem 7: 08/25/20 10:21 08/25/20 10:21 Labs: Abnormal Lab Results - Last 24 Hours (Table) 08/25/20 08/25/20 Range/Units 10:21 10:21 Hgb 12.9 L (13.0-17.5) gm/dL Plt Count 458 H (150-450) k/uL Glucose 108 H (74-99) mg/dL C-Reactive Protein 40.0 H (<10.0) mg/L Microbiology - Last 24 Hours (Table) 08/23/20 11:15 Gram Stain - Final Sputum Sputum Culture - Final 08/22/20 16:38 Blood Culture - Preliminary Blood No Growth after 48 hours Assessment and Plan (1) Lung abscess Narrative/Plan: The patient is improving with therapy appreciate Pulmonary's input cultures negative to date and abx changes from Unasyn and Vancomycin to Rocephin 2 g IV daily Current Visit: Yes Status: Acute Code(s): J85.2 - ABSCESS OF LUNG WITHOUT PNEUMONIA SNOMED Code(s): 30472173 (2) Chest discomfort Narrative/Plan: improving with therapy Current Visit: Yes Status: Acute Code(s): R07.89 - OTHER CHEST PAIN SNOMED Code(s): 688780351 (3) Pneumonia Narrative/Plan: now being treated for CAP will need close outpatient follow up Current Visit: Yes Status: Acute Code(s): J18.9 - PNEUMONIA, UNSPECIFIED ORGANISM SNOMED Code(s): 797744781
--- NOTE | 2020-08-25 18:47 | P.PN ---
Subjective Progress Note Date: 08/25/20 Principal diagnosis: Acute left lower lobe cavitating pneumonia Cavitary lesion in the lung 39-year-old male patient presented to the emergency department today because of fever and chills of 7 day duration addition to cough and headache. His symptoms of been going on for almost a week and other family members in his household with having similar symptoms. The patient felt feverish and he also complained of some left-sided chest pain. The pain was sharp and was pleuritic in nature. No hemoptysis. He initially presented himself to [facility], [place] he was treated with IV Unasyn he was diagnosed having pneumonia/lung abscess. His white cell count was at 19.5. He was started on IV Unasyn. Blood culture was taken and following that the patient was transferred to us for further evaluation and treatment. In the ED, the patient had temperature of 102.1. No tachycardia. No tachypnea. Pulse ox was 94%. He had a white cell count 20.3. The patient is seen today 08/23/2020 in follow-up on the selective care unit. He is currently sitting up in bed. Awake and alert in no acute distress. He does have a productive cough. Sputum culture pending. No fever, chills or night sweats. Less left-sided chest discomfort. He continues to maintain good O2 saturations in the 90s on room air. He's afebrile. White count 15.2. Hemoglobin 13.0. Sodium 137. Potassium 4.4. Creatinine 0.68. Mar virus not detected. Continued on Unasyn and vancomycin. 0.9 normal saline at 130 ML's per hour On 08/24/2020 patient seen in follow-up on elective care unit, and he is feeling better, is on room air, pulse ox 96%, he's been having some low-grade fevers, with a T-max 99.6F, lung sounds are diminished at the bases, no rhonchi or wheezing, and ice any chest discomfort, at times he is able to clear some weir colored phlegm. Blood and sputum cultures have shown no growth thus far, final cultures are pending, a current antibiotic coverage includes Unasyn and van comycin. Labs have been reviewed, showing limits cell count significant improved since admission, and down to 9.2, hemoglobin is 12.7, the rest of the CBC was unremarkable, renal profile and electrolytes were unremarkable. Chest pain or hemoptysis, is at p-ANCA and c-ANCA came back negative, COVID 19 PCR was negative Patient was reevaluated today on 08/21/20, patient is sitting in bed, he is p resently on room air, denies any shortness of breath, denies any cough, no wheezing, sputum cultures and blood cultures remain nondiagnostic. Follow-up chest x-ray showed left basilar focal airspace opacity and possibly a small tiny left pleural effusion. Clinically however the patient is doing great. And relatively asymptomatic. His antibiotics were changed by infectious disease to ertapenem, again patient has no active pulmonary symptoms whatsoever. And I honestly believe that the patient is doing great, could be considered for oral antibiotics and possibly follow-up on outpatient basis. Consider repeating the CT of the chest in 2-3 weeks Objective - Vital Signs Vital signs: Vital Signs Temp 98.4 F 08/25/20 08:00 Pulse 75 08/25/20 12:00 Resp 16 08/25/20 04:00 BP 116/73 08/25/20 12:00 Pulse Ox 96 08/25/20 12:00 Intake & Output 08/24/20 08/25/20 08/25/20 18:59 06:59 18:59 Intake Total 920 1230 698 Output Total 300 Balance 920 1230 398 Weight 97.7 kg Intake: Intake, IV Titration 750 Amount Ampicillin-Sulbactam 3 gm 100 In Sodium Chloride 0.9% 100 ml @ 200 mls/hr IVPB Q8HR [facility] Rx#:[id number] Sodium Chloride 0.9% 1, 150 000 ml @ 50 mls/hr IV . Q20H [facility] Rx#:[id number] Vancomycin 1,750 mg In 500 Sodium Chloride 0.9% 500 ml 500 ml @ 167 mls/hr IVPB Q8H [facility] Rx#: [id number] Oral 920 480 698 Output: Urine 300 Other: Voiding Method Toilet # Voids 1 1 - Exam GENERAL EXAM: Alert, very pleasant, comfortable in no apparent distress. On room air. HEAD: Normocephalic/atraumatic. EYES: Normal reaction of pupils, equal size. Conjunctiva pink, sclera white. NOSE: Clear with pink turbinates. THROAT: No erythema or exudates. NECK: No masses, no JVD, no thyroid enlargement, no adenopathy. CHEST: No chest wall deformity. Symmetrical expansion. LUNGS: Equal air entry with no crackles, wheeze, rhonchi or dullness. CVS: Regular rate and rhythm, normal S1 and S2, no gallops, no murmurs, no rubs ABDOMEN: Soft, nontender. No hepatosplenomegaly, normal bowel sounds, no guarding or rigidity. EXTREMITIES: No clubbing, no edema, no cyanosis, 2+ pulses and upper and lower extremities. MUSCULOSKELETAL: Muscle strength and tone normal. SPINE: No scoliosis or deformity SKIN: No rashes CENTRAL NERVOUS SYSTEM: Alert and oriented -3. No focal deficits, tone is normal in all 4 extremities. PSYCHIATRIC: Alert and oriented -3. Appropriate affect. Intact judgment and insight. - Labs CBC & Chem 7: 08/25/20 10:21 08/25/20 10:21 Labs: Abnormal Lab Results - Last 24 Hours (Table) 08/25/20 08/25/20 Range/Units 10:21 10:21 Hgb 12.9 L (13.0-17.5) gm/dL Plt Count 458 H (150-450) k/uL Glucose 108 H (74-99) mg/dL C-Reactive Protein 40.0 H (<10.0) mg/L Microbiology - Last 24 Hours (Table) 08/23/20 11:15 Gram Stain - Final Sputum Sputum Culture - Final 08/22/20 16:38 Blood Culture - Preliminary Blood No Growth after 48 hours Assessment and Plan Plan: Impression: Acute left lower lobe pneumonia, possibly cavitating, however clinically the patient is not behaving as such. Left-sided pleuritic chest pain secondary to pneumonia and pleurisy. With tiny small left pleural effusion. Recommendation: Continue antibiotics as per infectious disease on the case. Clinically the patient is doing great, Could be seriously considered for discharge home on oral antibiotics and follow- up closely on outpatient basis. We'll continue to follow. Time with Patient: Less than 30
[2020-08-26] MEDS ORDERED: VANCOMYCIN TROUGH DUE 1 EACH MISC MISCELLANE ONE (08:00)
[2020-08-26 09:00] LABS: Basophils # (A) 0.1 k/uL (0-0.2); Basophils % (A) 1 %; Eosinophils # (A) 0.2 k/uL (0-0.7); Eosinophils % (A) 3 %; HCT 41.4 % (39.0-53.0); HGB 13.2 gm/dL (13.0-17.5); Lymphocytes # (A) 1.7 k/uL (1.0-4.8); Lymphocytes % (A) 19 %; MCH 27.8 pg (25.0-35.0); MCHC 31.8 g/dL (31.0-37.0); MCV 87.3 fL (80.0-100.0); Mean Platelet Volume 6.9; Monocytes # (A) 0.2 k/uL (0-1.0); Monocytes % (A) 2 %; Neutrophils # (A) 6.6 k/uL (1.3-7.7); Neutrophils % (A) 75 %; Platelet Count 435 k/uL (150-450); RBC 4.74 m/uL (4.30-5.90); RDW 12.6 % (11.5-15.5); WBC 8.8 k/uL (3.8-10.6)
[2020-08-26 09:26] LABS: African American GFR (CKD) >90 (>60 ml/min/1.73 sqM); Anion Gap 8 mmol/L; Blood Urea Nitrogen 15 mg/dL (9-20); Calcium 9.5 mg/dL (8.4-10.2); Carbon Dioxide 29 mmol/L (22-30); Chloride 102 mmol/L (98-107); Glucose 137 mg/dL (74-99); Non-African American GFR(CKD) >90 (>60 ml/min/1.73 sqM); Potassium 4.5 mmol/L (3.5-5.1); Sodium 139 mmol/L (137-145)
[2020-08-26] MEDS: HEPARIN SODIUM,PORCINE 5,000 UNIT/ML 1 ML VIAL SQ SCH (09:30)
--- NOTE | 2020-08-26 11:28 | P.DS ---
Providers Date of admission: 08/22/20 17:13 Expected date of discharge: 08/26/20 Attending physician: Mya Perez Consults: 08/22/20 17:14 Consult Physician Routine Consulting Provider: Jose Heart Consult Reason/Comments: lung abscess Do you want consulting provider notified?: Yes 08/22/20 17:30 Consult Physician Routine Consulting Provider: Aubree Altamirano Consult Reason/Comments: Lung abscess Do you want consulting provider notified?: Yes Primary care physician: [facility] [place] Course: Discharge Diagnosis: Acute left lower lobe cavitating pneumonia, likely bacterial, probable gram- negative with sepsis, present on admission Pleuritic chest pain secondary to above Hospital Course: Patient is a 39-year-old male with no past medical history who presented to the emergency department due to fever and chills of 7 day duration associated with cough and headache. Initially he presented in [facility] and was treated with IV Unasyn and diagnosed with pneumonia and lung abscess. He was subsequently transferred to [place] for further evaluation. On arrival to the ER he was found have sepsis as well as pneumonia. Pulmonary was consulted and recommended continuing Unasyn and vancomycin. He seen and evaluated by infectious disease who agreed with continuing vancomycin and Unasyn as well as waiting for blood and sputum cultures to be finalized. Covid 19 PCR, p-ANCA, c- ANCA BACK negative. He had a PICC line placed in his left upper extremity on 08/25. Infectious disease recommended a two-week course of Invanz. He was doing well and maintaining sats greater than 94 on room air. He was determined stable for discharge home. He did have one episode of loose stool during his hospital stay and we'll subsequently take a probiotic along with his Invanz. He was given instructions to check for any white plaquing on his tongue and call Dr. Heart if thrush is noted, He was told to monitor PICC line for changes in placement, and to call Dr. vOiedo if diarrhea worsens. Patient seen and examined at bedside. Doing well, no shortness of breath, no chest pain, cough is lessening. No nausea, vomiting, or diarrhea. Vital signs reviewed and stable. General: non toxic, no distress, appears at stated age Derm: warm, dry Head: atraumatic, normocephalic, symmetric Eyes: EOMI, no lid lag, anicteric sclera Mouth: no lip lesion, mucus membranes moist Cardiovascular: S1S2 reg, no murmur, positive posterior tibial pulse bilateral, Lungs: CTA bilateral, no rhonchi, no rales , no accessory muscle use Abdominal: soft, nontender to palpation, no guarding, no appreciable organomegaly Ext: no gross muscle atrophy, no edema, no contractures Neuro: CN II-XI grossly intact, no focal neuro deficits Psych: Alert, oriented, appropriate affect A total of 35 minutes of time were spent preparing this complex discharge summary . Patient Condition at Discharge: Stable Plan - Discharge Summary Discharge Rx Participant: No New Discharge Prescriptions: New Ertapenem [INVanz] 1 gm IVPB Q24H #14 bag Discharge Medication List Ertapenem [INVanz] 1 gm IVPB Q24H #14 bag 08/26/20 [Rx] Follow up Appointment(s)/Referral(s): [facility], [NON-STAFF] - [facility],Infusion [NON-STAFF] - Sarah Oviedo DO [Primary Care Provider] - 1-2 days Discharge Disposition: HOME SELF-CARE
[2020-08-26] MEDS ORDERED: ERTAPENEM 1 GM in SODIUM CHLORIDE 0.9% 50 ML IVPB SCH (14:00)
[2020-08-26 15:15] VITALS: BP 139/89; PULSE 80; RESP 18; TEMP 98
--- NOTE | 2020-08-26 15:19 | P.PN ---
Subjective Progress Note Date: 08/26/20 Principal diagnosis: Cavitary lesion in the lung 39-year-old male patient presented to the emergency department today because of fever and chills of 7 day duration addition to cough and headache. His symptoms of been going on for almost a week and other family members in his household with having similar symptoms. The patient felt feverish and he also complained of some left-sided chest pain. The pain was sharp and was pleuritic in nature. No hemoptysis. He initially presented himself to [facility] he was treated with IV Unasyn he was diagnosed having pneumonia/lung abscess. His white cell count was at 19.5. He was started on IV Unasyn. Blood culture was taken and following that the patient was transferred to us for further evaluation and treatment. In the ED, the patient had temperature of 102.1. No tachycardia. No tachypnea. Pulse ox was 94%. He had a white cell count 20.3. The patient is seen today 08/23/2020 in follow-up on the selective care unit. He is currently sitting up in bed. Awake and alert in no acute distress. He does have a productive cough. Sputum culture pending. No fever, chills or night sweats. Less left-sided chest discomfort. He continues to maintain good O2 saturations in the 90s on room air. He's afebrile. White count 15.2. Hemoglobin 13.0. Sodium 137. Potassium 4.4. Creatinine 0.68. Mar virus not detected. Continued on Unasyn and vancomycin. 0.9 normal saline at 130 ML's per hour On 08/24/2020 patient seen in follow-up on elective care unit, and he is feeling better, is on room air, pulse ox 96%, he's been having some low-grade fevers, with a T-max 99.6F, lung sounds are diminished at the bases, no rhonchi or wheezing, and ice any chest discomfort, at times he is able to clear some weir colored phlegm. Blood and sputum cultures have shown no growth thus far, final cultures are pending, a current antibiotic coverage includes Unasyn and vancomycin. Labs have been reviewed, showing limits cell count significant improved since admission, and down to 9.2, hemoglobin is 12.7, the rest of the CBC was unremarkable, renal profile and electrolytes were unremarkable. Chest pain or hemoptysis, is at p-ANCA and c-ANCA came back negative, COVID 19 PCR was negative On 08/26/2020 patient seen in follow-up on medical surgical floor. He is calm and comfortable, he is on room air, pulse ox 96%, he's been afebrile, no complaints of chest discomfort, no hemoptysis, no signs have been stable, breathing comfortably. His blood and sputum cultures have been negative. His white count continues to decrease, is down to 8.8 on today's labs, hemoglobin is 13.2, electrolytes and renal profile are unremarkable. No altered mentation. No pleuritic chest pain. Had a midline inserted in the plan is for the patient to go home on Invanz infusions for 2 weeks Objective - Vital Signs Vital signs: Vital Signs Temp 98 F 08/26/20 14:00 Pulse 80 08/26/20 14:00 Resp 18 08/26/20 14:00 BP 139/89 08/26/20 14:00 Pulse Ox 96 08/26/20 14:00 Intake & Output 08/25/20 08/26/20 08/26/20 18:59 06:59 18:59 Intake Total 698 100 Output Total 300 Balance 398 100 Intake: Oral 698 100 Output: Urine 300 Other: Voiding Method Toilet Toilet - Exam GENERAL EXAM: Alert, very pleasant, comfortable in no apparent distress. HEAD: Normocephalic/atraumatic. EYES: Normal reaction of pupils, equal size. Conjunctiva pink, sclera white. NOSE: Clear with pink turbinates. THROAT: No erythema or exudates. NECK: No masses, no JVD, no thyroid enlargement, no adenopathy. CHEST: No chest wall deformity. Symmetrical expansion. LUNGS: Equal air entry with no crackles, wheeze, rhonchi or dullness. CVS: Regular rate and rhythm, normal S1 and S2, no gallops, no murmurs, no rubs ABDOMEN: Soft, nontender. No hepatosplenomegaly, normal bowel sounds, no guarding or rigidity. EXTREMITIES: No clubbing, no edema, no cyanosis, 2+ pulses and upper and lower extremities. MUSCULOSKELETAL: Muscle strength and tone normal. SPINE: No scoliosis or deformity SKIN: No rashes CENTRAL NERVOUS SYSTEM: Alert and oriented -3. No focal deficits, tone is normal in all 4 extremities. PSYCHIATRIC: Alert and oriented -3. Appropriate affect. Intact judgment and insight. - Labs CBC & Chem 7: 08/26/20 08:24 08/26/20 08:24 Labs: Abnormal Lab Results - Last 24 Hours (Table) 08/26/20 Range/Units 08:24 Glucose 137 H (74-99) mg/dL Microbiology - Last 24 Hours (Table) 08/22/20 16:38 Blood Culture - Preliminary Blood No Growth after 72 hours Assessment and Plan Plan: Assessment: #1. Acute left lower lung cavitating pneumonia, most likely bacterial, consider gram-negative pneumonia, and consider MRSA pneumonia. Unlikely fungal infection, sputum and blood cultures have shown no growth thus far, final cultures are pending the patient is covered with a combination of Unasyn and vancomycin. COVID 19 PCR was negative #2. Leukocytosis related to the above, improving #3. Pleuritic left-sided chest pain related to bacterial pneumonia involving the left lung, improved Plan Patient is doing well, afebrile overnight, vital signs are stable, sputum and blood cultures show no growth, cytosis has improved, no complaints of pleuritic chest pain. Doing well, discharge is pending for home with Invanz infusions for 2 weeks, patient will need outpatient follow up with Dr. Altamirano in the office in one week I performed a history & physical examination of the patient and discussed their management with my nurse practitioner, Rita Hein. I reviewed the nurse practitioner's note and agree with the documented findings and plan of care. Lung sounds are positive for . The findings and the impression was discussed with the patient. I attest to the documentation by the nurse practitioner. Time with Patient: Less than 30
--- NOTE | 2020-08-26 15:30 | PN ---
PROGRESS NOTE DATE OF SERVICE: 08/26/2020 REASON FOR FOLLOWUP: Left lower lobe pneumonia, question of abscess. INTERVAL HISTORY: The patient overall is feeling better. He is breathing comfortably. The patient's left lower chest pain has improved. No nausea, no vomiting. Minimal cough. No abdominal pain or diarrhea. PHYSICAL EXAMINATION: Blood pressure 146/89 with pulse of 69, temperature 98.2. He is 96% on room air. General description is a middle-aged male up in the bed in no distress. RESPIRATORY SYSTEM: Unlabored breathing with decreased breath sounds at the base. No wheeze. HEART: S1, S2. Regular rate and rhythm. ABDOMEN: Soft. No tenderness. LABS: CRP is 40. White count normal at 8.8. Blood culture negative. Sputum was usual respiratory latia. DIAGNOSTIC IMPRESSION AND PLAN: Patient with left lower lobe pneumonia concerning for possible lung abscess in this patient who is clinically responding to the IV antibiotics. Patient with CEPHALEXIN ALLERGY; hence could not give Rocephin. Plan is 1 gram daily for another 10 days and close outpatient followup. MMODL / IJN: [id number] /
[2020-08-28 18:23] LABS: Histoplasma Abs by ID None Detected (None Detected); Histoplasma Abs by Mycelia, CF <1:8 (<1:8)
== END 2020-08-26 17:38 | disposition home or self-care (01) | DRG 871 ==
LOC: EC 15:41 → 3SCARD 17:13 → 4SSUR 08-25 21:05
PROVIDERS: ADMIT Internal Medicine; ATTEND Internal Medicine
PROC: 02HV33Z Insertion of Infusion Device into Superior Vena Cava, Percutaneous Approach (ICD-10-PCS; principal; 2020-08-26)
DX: A41.50 Gram-negative sepsis, unspecified (principal); J15.6 Pneumonia due to other Gram-negative bacteria; J85.1 Abscess of lung with pneumonia; R09.1 Pleurisy; Z20.828 Contact with and (suspected) exposure to other viral communicable diseases; Z88.1 Allergy status to other antibiotic agents; Z90.89 Acquired absence of other organs
CPT/HCPCS: 36415; 71045; 71046; 80048; 80053; 80202; 83605; 84145; 85025; 86038; 86140; 86255; 86606; 86698; 87040; 87070; 87205; 87635; 96365; 96366; 99285